=== PATIENT | female | born 1965 | race Caucasian/White ===

== ENCOUNTER → 2025-01-29 | Outpatient (CLI) | payer OTHER, BC, SELFPAY ==
--- NOTE | 2025-01-29 07:00 | XR_ITS ---
Examination: MRI right hip without intravenous contrast. Date and time of exam: January 29, 2025 0655 hrs. Indications: Right hip pain radiating down the leg 3 months Technique: Multiple MRI images of the right hip have been obtained T1 weighted coronal sections, TR 500, TE 12 Proton density coronal fat saturated images, TR 3000, TE 71 T2-weighted coronal images, 5850, TE 104 T1-weighted axial images, TR 521, TE 12 T2-weighted axial fat suppressed images, TR 5730, TE 103. Findings: Significant narrowing right hip joint Small right hip effusion Multiple superior labral tears Significant narrowing left hip joint Bones of the pelvis intact Atrophic uterus No free fluid in the pelvis Impression: Advanced right hip osteoarthritis Multiple superior right hip labral tears
== END | disposition home or self-care (01) ==
PROVIDERS: PCP Physician Assistant; Referring Provider Physician Assistant; Visit Provider Physician Assistant
DX: M16.11 Unilateral primary osteoarthritis, right hip (principal); S73.191A Other sprain of right hip, initial encounter; X58.XXXA Exposure to other specified factors, initial encounter
CPT/HCPCS: 73721

== ENCOUNTER → 2025-02-24 | Outpatient (CLI) | payer OTHER, BC, SELFPAY | END | disposition home or self-care (01) | PROVIDERS: PCP Physical Therapist; Referring Provider Physician Assistant; Visit Provider Emergency Medicine Undersea and Hyperbaric Medicine | DX: Z01.89 Encounter for other specified special examinations (principal) | CPT/HCPCS: 36415 ==

== ENCOUNTER → 2025-03-11 | Outpatient (CLI) | payer OTHER, BC, SELFPAY | END | disposition home or self-care (01) | PROVIDERS: PCP Family Medicine; Referring Provider Family Medicine; Visit Provider Family Medicine | DX: Z01.89 Encounter for other specified special examinations (principal) | CPT/HCPCS: 36415 ==

== ENCOUNTER 2025-03-18 14:01 | Outpatient (AMB) | payer OTHER, BC, SELFPAY ==
[2025-03-18 14:35] VITALS: BP 143/82; PULSE 116; RESP 17; TEMP 35.7; O2SAT 97; BMI 35.7
--- NOTE | 2025-03-18 14:35 | ORTHONT_ITS ---
Vital signs 03/18/25 14:35 Height 1.73 m Height Method Stated Weight 106.623 kg Weight Measurement Method Standing Scale BMI 35.7 BP 143/82 H Blood Pressure Source Automatic Cuff Blood Pressure Location Right Upper Arm Position Sitting Respiration 17 Pulse 116 H Pulse Source Monitor Temp 96.3 F L Temp Source Temporal Artery Scan Pulse Oximetry (%) 97 Oxygen Delivery Method Room Air Med/Allergies Allergies & Medications Allergies No Known Allergies Allergy (Verified 03/18/25 14:36) Medication Reconciliation buspirone 10 mg tablet 10 mg PO BID 03/07/21 [History Confirmed 03/18/25] alprazolam 0.25 mg tablet 0.25 mg PO HS 12/01/21 [History Confirmed 03/18/25] atorvastatin 10 mg tablet 10 mg PO QDAY 12/01/21 [History Confirmed 03/18/25] celecoxib 200 mg capsule 200 mg PO BID 12/01/21 [History Confirmed 03/18/25] hydrochlorothiazide 25 mg tablet 25 mg PO QAM 12/01/21 [History Confirmed 03/18/25] sertraline 100 mg tablet 100 mg PO QDAY 12/01/21 [History Confirmed 03/18/25] meloxicam 7.5 mg tablet 7.5 mg PO QDAY #45 tabs 03/18/25 [Rx] Exam Exam Patient is in no acute distress and is cooperative with the examination today. Breathing is nonlabored. In no respiratory distress. Patient has no paraspinal tenderness. Spinal deformity cannot be appreciated. The gait of the patient is nonantalgic Bilateral extremities were evaluated and demonstrates sensation intact to light touch. Palpable pedal pulses are present. No significant edema is present. Bilateral knees were examined and the patient has full strength and range of motion.. The left hip was examined. Patient was able to flex to 90 degrees, adduct to 30 degrees, abduct to 40 degrees, internally rotate to 20 degrees, and externally rotate to 20 degrees. Patient has a negative logroll. Stinchfield is negative. The patient is nontender diffusely to touch. The right hip was examined. Patient was able to flex to 90 degrees, adduct to 30 degrees, abduct to 40 degrees, internally rotate to 20 degrees, and externally rotate to 20 degrees. Patient has a positive logroll and positive Stinchfield Patient is an MRI which demonstrates significant degenerative changes Assessment and Plan Problem List (1) Arthritis of right hip: Status: Acute Plan: Patient is a pleasant 60-year-old female with right hip arthritis. We discussed different treatment options. We will get x-rays to better evaluate the hip as we discussed that this is better than MRI. 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 ([id number]) MA Intake Visit Data Collection New Patient or Established: Established Patient (seen at [facility] within 3 years) Reason for Visit:: HIP PAIN Seen by Clinical Staff ONLY (RN/MA): No Aircraft Engine Technician Required: No PCP or OBGYN visit in last 3 months: Yes Hx Now: No Do You Feel Safe at Home: Yes Authorities Contacted: N/A Questionairres Past Medical History Past Medical History Have you ever been diagnosed with any of the following: Cardiology Problems Congestive Heart Failure: No Hypertension: Yes Respiratory Problems Chronic Obstructive Pulmonary Disease (COPD): No Smoking: No Smoking Cessation Counseling: No Smoking Exposure: No Tobacco Use: No Genital/Urinary Problems Renal Disease: No Reproductive Problems Pelvic Inflammatory Disease: No Endocrine Problems Diabetes Mellitus Type 1: No Diabetes Mellitus Type 2: No Psychologic Problems Depression: Yes Anxiety: Yes Subjective Visit Visit for: new patient and hip (RIGHT SIDE ) Immunization / Flu Flu Vaccine in the Last 12 Months: No Flu Vaccine Exclusion Criteria: Refused by Patient History of Present Illness Chief complaint: 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 This been ongoing for approximately 4 months. She has tried rest and not really any other conservative treatment. The pain is affecting her quality life and happiness at this point. Personal History Red flag PMH: none Pain Pain level (0-10): 2 Pain duration: 11/2024 Pain location: groin Pain quality: burning Pain timing: increases with activity Associated signs & symptoms: weakness and stiffness Ambulatory data Ambulatory device: none Walking distance (minutes): 2 Treatments Number of previous injections: 0 Number of Physical Therapy sessions: 0 Improvement with NSAIDS: n/a Review of Systems Review of Systems: All systems negative unless otherwise noted in HPI.
--- NOTE | 2025-03-18 15:00 | XR_ITS ---
Examination:Right hip AP, lateral, AP pelvis 3 views Technique: Hip AP lateral, AP pelvis, 3 views Exam date and time:March 18, 2025 1510 hours INDICATIONS: Right hip pain beginning 4 months ago. FINDINGS: Moderate right hip osteoarthritis No right hip fracture or dislocation Mild left hip osteoarthritis IMPRESSION: Moderate right hip osteoarthritis.
== END 2025-03-18 15:05 | disposition home or self-care (01) ==
LOC: HODSRG 14:01
PROVIDERS: PCP Physician Assistant; Referring Provider Physician Assistant; Supervising Provider Orthopaedic Surgery Adult Reconstructive Orthopaedic Surgery; Visit Provider Orthopaedic Surgery Adult Reconstructive Orthopaedic Surgery
DX: M16.11 Unilateral primary osteoarthritis, right hip (principal)
CPT/HCPCS: 73502; 99204; G0463

== ENCOUNTER 2025-06-10 13:46 | Outpatient (AMB) | payer OTHER, BC, SELFPAY ==
--- NOTE | 2025-06-10 13:59 | PD.ORTHCLVIS ---
Vital signs 06/10/25 14:01 Height 1.73 m Height Method Measured Weight 98.6 kg Weight Measurement Method Standing Scale BMI 32.9 BP 131/81 H Blood Pressure Source Automatic Cuff Blood Pressure Location Left Upper Arm Position Sitting Respiration 18 Pulse 91 Pulse Source Monitor Temp 97.8 F Temp Source Temporal Artery Scan Pulse Oximetry (%) 97 Oxygen Delivery Method Room Air Med/Allergies Allergies & Medications Allergies No Known Allergies Allergy (Verified 06/10/25 14:02) Medication Reconciliation buspirone 10 mg tablet 10 mg PO BID 03/07/21 [History Confirmed 06/10/25] alprazolam 0.25 mg tablet 0.25 mg PO HS 12/01/21 [History Confirmed 06/10/25] atorvastatin 10 mg tablet 10 mg PO QDAY 12/01/21 [History Confirmed 06/10/25] celecoxib 200 mg capsule 200 mg PO BID 12/01/21 [History Confirmed 06/10/25] hydrochlorothiazide 25 mg tablet 25 mg PO QAM 12/01/21 [History Confirmed 06/10/25] sertraline 100 mg tablet 100 mg PO QDAY 12/01/21 [History Confirmed 06/10/25] meloxicam 7.5 mg tablet 7.5 mg PO QDAY #45 tabs 03/18/25 [Rx Confirmed 06/10/25] cyclobenzaprine 5 mg tablet 5 mg PO QHS PRN muscle spasm #60 tabs 06/10/25 [Rx] meloxicam 7.5 mg tablet 7.5 mg PO BID #45 tabs 06/10/25 [Rx] Exam Exam Patient is in no acute distress and is cooperative with the examination today. Breathing is nonlabored. In no respiratory distress. Patient has no paraspinal tenderness. Spinal deformity cannot be appreciated. The gait of the patient is nonantalgic Bilateral extremities were evaluated and demonstrates sensation intact to light touch. Palpable pedal pulses are present. No significant edema is present. Bilateral knees were examined and the patient has full strength and range of motion.. The left hip was examined. Patient was able to flex to 90 degrees, adduct to 30 degrees, abduct to 40 degrees, internally rotate to 20 degrees, and externally rotate to 20 degrees. Patient has a negative logroll. Stinchfield is negative. The patient is nontender diffusely to touch. The right hip was examined. Patient was able to flex to 90 degrees, adduct to 30 degrees, abduct to 40 degrees, internally rotate to 20 degrees, and externally rotate to 20 degrees. Patient has a positive logroll and positive Stinchfield Patient is an MRI which demonstrates significant degenerative changes Assessment and Plan Problem List (1) Arthritis of right hip: Status: Acute Plan: Patient is a pleasant 60-year-old female with right hip arthritis. We discussed different treatment options. X-rays demonstrate moderate arthritis of the right hip. I would like to get x-rays of her hip as this has been acting up recently. Office Procedures GNS Level of Care Nursing/Assessment Patient Status: Established Patient Nursing Assessment/Reassesment: Medication Reconciliation, Orthostatic Vitals, Update PMH in EMR and Vital Signs Coordination of Care: Complex Care and Chronic Disease 1-5, Education Complex Pt/Fam, Consent,records obtained, informed consent, Results/Orders obtained and Staff clarify orders Established Patient Charge Established Patient Point Assignment: 105 Established Patient Point Charge: EP Level 3 (80-115) MA Intake Visit Data Collection New Patient or Established: Established Patient (seen at [facility] within 3 years) Reason for Visit:: HIP PAIN Seen by Clinical Staff ONLY (RN/MA): No Hand Almond Blancher Required: No PCP or OBGYN visit in last 3 months: Yes Hx Now: No Do You Feel Safe at Home: Yes Authorities Contacted: N/A Questionairres Past Medical History Past Medical History Have you ever been diagnosed with any of the following: Cardiology Problems Congestive Heart Failure: No Hypertension: Yes Respiratory Problems Chronic Obstructive Pulmonary Disease (COPD): No Smoking: No Smoking Cessation Counseling: No Smoking Exposure: No Tobacco Use: No Genital/Urinary Problems Renal Disease: No Reproductive Problems Pelvic Inflammatory Disease: No Endocrine Problems Diabetes Mellitus Type 1: No Diabetes Mellitus Type 2: No Psychologic Problems Depression: Yes Anxiety: Yes Subjective Visit Visit for: follow up visit and hip Immunization / Flu Flu Vaccine in the Last 12 Months: No Flu Vaccine Exclusion Criteria: Refused by Patient History of Present Illness Chief complaint: 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 This been ongoing for approximately 4 months. She has tried rest and not really any other conservative treatment. The pain is affecting her quality life and happiness at this point. The pain improved until a fall 3 weeks ago Personal History Red flag PMH: none Pain Pain level (0-10): 2 Pain duration: 11/2024 Pain location: groin Pain quality: burning Pain timing: increases with activity Associated signs & symptoms: weakness and stiffness Ambulatory data Ambulatory device: none Walking distance (minutes): 2 Treatments Number of previous injections: 0 Number of Physical Therapy sessions: 0 Improvement with NSAIDS: n/a Review of Systems Review of Systems: All systems negative unless otherwise noted in HPI.
[2025-06-10 14:01] VITALS: BP 131/81; PULSE 91; RESP 18; TEMP 36.6; O2SAT 97; BMI 32.9
--- NOTE | 2025-06-10 14:10 | XR_ITS ---
Examination:Right hip AP, lateral, AP pelvis 3 views Technique: Hip AP lateral, AP pelvis, 3 views Exam date and time:June 10, 2025 1423 hours INDICATIONS: Patient fell 3 weeks ago with injury to right knee, right knee pain FINDINGS: No right hip fracture or dislocation Moderate to advanced right hip osteoarthritis Mild left hip osteoarthritis Bones of the pelvis intact IMPRESSION: No hip or pelvic fracture Moderate to advanced right hip osteoarthritis.
--- NOTE | 2025-06-10 14:10 | XR_ITS ---
Examination: Bilateral AP knees single view Right knee PA lateral axial 3 views TECHNIQUE: Bilateral AP knees standing single view Right knee PA standing flexion, standing lateral, axial right knee 3 views total 4 views Date and time: June 10, 2025 1423 hours INDICATIONS: Patient fell 3 weeks ago with injury to the right knee, right knee pain. FINDINGS: Moderate osteopenia Mild to moderate tricompartment osteoarthritis right knee most severe patellofemoral joint No fracture No patellar dislocation Mild narrowing medial lateral joint spaces left knee IMPRESSION: Mild to moderate tricompartment osteoarthritis right knee, most severe patellofemoral joints
== END 2025-06-10 14:14 | disposition home or self-care (01) ==
LOC: HODSRG 13:46
PROVIDERS: PCP Physician Assistant; Referring Provider Physician Assistant; Supervising Provider Orthopaedic Surgery Adult Reconstructive Orthopaedic Surgery; Visit Provider Orthopaedic Surgery Adult Reconstructive Orthopaedic Surgery
DX: M16.11 Unilateral primary osteoarthritis, right hip (principal); M25.551 Pain in right hip; M17.11 Unilateral primary osteoarthritis, right knee; I10 Essential (primary) hypertension
CPT/HCPCS: 73502; 73564; 99213; G0463

== ENCOUNTER → 2025-08-18 | Outpatient (CLI) | payer OTHER, BC, SELFPAY ==
[2025-08-18 14:08] LABS: Free T4 (Free Thyroxine) 1.26 ng/dL (0.89-1.76); Thyroid Stimulating Hormone 2.66 uIU/mL (0.55-4.78)
== END | disposition home or self-care (01) ==
LOC: COPL 13:19
PROVIDERS: PCP Family Medicine; Referring Provider Internal Medicine Cardiovascular Disease; Visit Provider Internal Medicine Cardiovascular Disease
DX: R07.89 Other chest pain (principal)
CPT/HCPCS: 36415; 84439; 84443

== ENCOUNTER → 2025-09-03 | Outpatient (CLI) | payer OTHER, BC, SELFPAY ==
[2025-09-03 11:53] LABS: Collection Type, Urine Clean Catch
[2025-09-03 11:57] LABS: Basophils # (Auto) 0.1 Thou/mm3 (0.0-0.2); Basophils % (Auto) 1 % (0-2.5); Eosinophils # (Auto) 0.2 Thou/mm3 (0.0-0.5); Eosinophils % (Auto) 2 % (0-10); Hematocrit 43.2 % (36.0-46.0); Hemoglobin 14.8 g/dL (12.0-16.0); Immature Granulocytes Auto 0.01 Thou/mm3 (0.00-0.00); Lymphocytes # (Auto) 2.8 Thou/mm3 (1.0-4.8); Lymphocytes % (Auto) 36 % (10-50); Mean Corpuscular HGB Conc 34.3 g/dl (31.0-37.0); Mean Corpuscular Hemoglobin 29.8 pg (25.0-35.0); Mean Corpuscular Volume 87 fL (80-100); Monocytes # (Auto) 0.5 Thou/mm3 (0.0-0.8); Monocytes % (Auto) 7 % (0-12); Neutrophils # (Auto) 4.2 Thou/mm3 (1.8-7.7); Neutrophils % (Auto) 54 % (37-80); Nucleated Red Blood Cell # 0.00 Thou/mm3 (0.00-0.00); Nucleated Red Blood Cell % 0 /100 WBC (0); Platelet Count 262 Thou/mm3 (140-440); RDW Standard Deviation 40.9 fL (36.4-46.3); Red Blood Count 4.97 Miln/mm3 (4.00-5.20); White Blood Count 7.7 Thou/mm3 (3.6-11.0)
[2025-09-03 12:20] LABS: Alanine Aminotransferase 23 U/L (10-49); Albumin, Serum 5.0 gm/dL (3.4-4.8); Albumin/Globulin Ratio 2.0 (1.2-2.2); Alkaline Phosphatase 70 U/L (46-116); Anion Gap 12 (7-16); Aspartate Amino Transferase 22 U/L (0-34); BUN/Creatinine Ratio 16 Ratio (12-20); Bilirubin,Total 0.5 mg/dL (0.3-1.2); Blood Urea Nitrogen 13 mg/dL (9-23); Calcium 10.1 mg/dL (8.3-10.6); Calcium (Corrected) 10.1 mg/dL (8.5-10.1); Carbon Dioxide 30.4 mMol/L (20.0-31.0); Cardiac Risk Estimate 5.2 RATIO (3.7-5.6); Chloride 100 mMol/L (98-107); Cholesterol 256 mg/dL (132-200); Creatinine (Component) 0.8 mg/dL (0.6-1.3); Globulin 2.5 gm/dL (2.3-3.5); Glucose 93 mg/dL (74-106); HDL Cholesterol 49 mg/dL (40-60); LDL Cholesterol,Calculated 169 mg/dL (0-130); Osmolality,Calculated 283 (275-295); Potassium 4.6 mMol/L (3.4-5.1); Sodium 142 mMol/L (136-145); Total Protein 7.5 gm/dL (5.7-8.2); Triglycerides 191 mg/dL (30-150); eGFR > 60 See Note
[2025-09-03 12:27] LABS: Bilirubin,Urine Negative (Negative); Blood,Urine Negative (Negative); Clarity,Urine Clear (Clear/Hazy); Color,Urine Yellow (Lt Yel-Yel); Culture Indicated,Urine Not Indicated; Glucose, Urine Negative (Negative); Hyaline Casts,Urine < 1 /hpf (0-1); Ketones,Urine Negative (Negative); Leukocyte Esterase,Urine Negative (Negative); Nitrite,Urine Negative (Negative); PH,Urine 7.5 (5.0-7.0); Protein,Urine Negative (Neg - Trace); RBC,Urine 1 /hpf (0-3); Specific Gravity,Urine 1.019 (1.001-1.035); Squamous Epithelial Cell,Urine 1 /hpf (0-5); Urobilinogen,Urine Negative mg/dL (0.0-1.0); WBC,Urine 1 /hpf (0-5)
[2025-09-03 15:12] LABS: Glucose Estimated Average 111 mg/dL (80-131); Hemoglobin A1C 5.5 % Hgb (4.8-6.0)
== END | disposition home or self-care (01) ==
LOC: COPL 09:43
PROVIDERS: PCP Family Medicine; Referring Provider Physician Assistant; Visit Provider Physician Assistant
DX: E78.5 Hyperlipidemia, unspecified (principal); I10 Essential (primary) hypertension
CPT/HCPCS: 36415; 80053; 80061; 81001; 83036; 85025